=== PATIENT | female | born 1985 | race Caucasian/White ===

== ENCOUNTER 2017-09-19 05:12 | Inpatient (IN) | payer SELFPAY ==
[~2017-09-19] VITALS: Ht 152.4 cm; Wt 75.7 kg
[2017-09-19] MEDS ORDERED: FAMOTIDINE(*) 20MG/50ML PREMIX 50 ML IVPB PRN (05:14)
[2017-09-19] MEDS ORDERED: cefOXitin SOD 2 GM VIAL 2 GM in NS(*) 0.9% 100 ML BAG 100 ML IVPB PRN (05:15)
[2017-09-19] MEDS ORDERED: fentaNYL CITR 100 MCG/2 ML AMP IVP PRN (05:15)
[2017-09-19] MEDS ORDERED: MISOPROSTOL 25 MCG CAP PV PRN (05:15)
[2017-09-19] MEDS ORDERED: METOCLOPRAMIDE 10 MG/2 ML SDV IVP PRN (05:15)
[2017-09-19] MEDS ORDERED: LIDOCAINE/SOD BICARB 8.4% SYR SC PRN (05:15)
[2017-09-19] MEDS ORDERED: LIDOCAINE 1% LOCAL 300 MG/30ML INJ PRN (05:15)
[2017-09-19 06:00] VITALS: BP 144/94; Ht 152.4 cm; Wt 75.7 kg
[2017-09-19] MEDS ORDERED: DLR(*) 1000 ML BAG 1,000 ML IV PRN (06:12)
[2017-09-19] MEDS ORDERED: PENICILLIN G 5 MILLUN/100 ML 100 ML IVPB ONE (06:15)
[2017-09-19 06:27] LABS: PLATELET COUNT, AUTOMATED 241 K/uL (150-450)
[2017-09-19] MEDS: LR(*) 1000 ML BAG 1,000 ML IV PRN ×2 (07:00→18:06)
[2017-09-19] MEDS ORDERED: LIDO/EPI 2% MPF 1:200,000 20ML EPI PRN (07:15)
[2017-09-19] MEDS ORDERED: FENTANYL/ROPIVACAINE 100 ML BAG EPI PRN (07:15)
[2017-09-19] MEDS ORDERED: fentaNYL CITR 100 MCG/2 ML AMP IT PRN (07:15)
[2017-09-19] MEDS ORDERED: ePHEDrine 25 MG/5 ML DISP.SYR IVP PRN (07:15)
[2017-09-19] MEDS ORDERED: ONDANSETRON 4 MG/2 ML VIAL IVP PRN (07:15)
[2017-09-19] MEDS ORDERED: BUPIVACAINE 0.25% MPF INJ EPI PRN (07:15)
[2017-09-19] MEDS ORDERED: LIDOCAINE/PF 2% 200MG/10ML AMP 200 MG/10 ML AMPUL EPI PRN (07:15)
[2017-09-19] MEDS ORDERED: BUPIVACAINE 0.5% INJ 30ML VIAL EPI PRN (07:15)
[2017-09-19] MEDS ORDERED: PREN-127 PO (07:24)
[2017-09-19] MEDS ORDERED: ACET-1966 PO (07:24)
--- NOTE | 2017-09-19 08:40 | History & Physical ---
History of Present Illness Age of Patient: 32 : 4 Para or TPAL: 3003 EDC per LMP: September 26, 2017 Estimated Gestational Age: 39 Chief Complaint IOL History of Present Illness The patient is a 32 year old 4 para 3003 admitted at 39 weeks estimated gestational age with an estimated date of delivery 09/26/17. Patient is admitted for induction. No vaginal bleeding. Good movement and occasional contractions. She was evaluated for active labor. She had course complicated by late transfer of care, relinquishing , and a positive RPR and confirmatory test pending. Her record was reviewed. History Allergies: Coded Allergies: No Known Drug Allergies (Unverified , 09/19/17) Med Rec Home Meds Reported Medications Acetaminophen (TYLENOL) 325 Mg Tablet, 325 MG PO, TAB 09/19/17 Vits W-Ca,Fe,Fa(<1MG) ( VITAMINS) 1 Each Tablet, 1 EACH PO DAILY, TAB 09/19/17 Exam General Exam Vital Signs Vital Signs Date Time Temp Pulse Resp B/P (MAP) Pulse Ox O2 Delivery O2 Flow Rate FiO2 09/19/17 06:00 99.4 120 16 144/94 (111) 99 Room Air Cardiovascular: Regular Rate and Rhythm Respiratory: Clear to Auscultation Abdomen: Gravid - Non-Tender Extremities: No Edema Cervical Dialation: 2 Cervical Effacement (%): 50 Station: -3 Presentation: Vertex Uterine Contractions(Q min): 3 Fetus Heart Tones: 140 FHT Category: I Medical Decision Making Data Points Result Diagram: 09/19/17 0612 Assessment and Plan Problems: (1) , normal subsequent Assessment & Plan: cytotec induction initiated, will start PCN for GBS prophylaxis with unknown carrier status. Result should be back by noon. RPR with confirmatory test pending. Will monitor for change in cervix. Copies to: YANG VALDEZ MD, JOHN MD September 19, 2017 08:39
[2017-09-19] MEDS ORDERED: EPIDURAL KEYS XX PRN (12:00)
[2017-09-19] MEDS ORDERED: OXYTOCIN 30 UNIT/D5LR 500 ML 500 ML IV PRN (12:51)
--- NOTE | 2017-09-19 12:51 | Labor Progress Note ---
Labor Subjective Progress Notes Subjective sleeping, not feeling painful contractions Labor Pain: Mild Labor Objective Vital Signs Vital Signs Date Time Temp Pulse Resp B/P (MAP) Pulse Ox O2 Delivery O2 Flow Rate FiO2 09/19/17 06:00 99.4 120 16 144/94 (111) 99 Room Air Cervical Dialation: 3 Cervical Effacement (%): 50 Cervical Consistency: Soft Cervical Position: Posterior Station: -2 Presentation: Vertex Uterine Contractions(Q min): 5 Uterine Contraction Strength: Mild Fetus Heart Tones: 130 FHT Category: I Other Result Diagram: 09/19/17 0612 Assessment and Plan Problems: (1) , normal subsequent Assessment & Plan: will start pitocin to augment contraction strength YANG VALDEZ MD September 19, 2017 12:51
[2017-09-19] MEDS ORDERED: PENICILLIN G 2.5 MILLUN/100 ML 100 ML ONE (13:03)
--- NOTE | 2017-09-19 16:06 | Labor Progress Note ---
Labor Subjective Progress Notes Subjective feeling contractions Labor Pain: Mild Labor Objective Vital Signs Vital Signs Date Time Temp Pulse Resp B/P (MAP) Pulse Ox O2 Delivery O2 Flow Rate FiO2 09/19/17 06:00 99.4 120 16 144/94 (111) 99 Room Air Cervical Dialation: 3 Cervical Effacement (%): 50 Cervical Consistency: Soft Cervical Position: Posterior Station: Ballotable Presentation: Vertex Uterine Contractions(Q min): 3 Uterine Contraction Strength: Moderate Fetus Heart Tones: 130 FHT Category: I Other Result Diagram: 09/19/17 0612 Assessment and Plan Problems: (1) , normal subsequent Assessment & Plan: discussed with Dr Bhandari at OBX the positive RPR with a 1:1 titer with FTA-ABS pending. 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 Will continue ptiocin and AROM when able YANG VALDEZ MD September 19, 2017 16:06
[2017-09-19] MEDS ORDERED: LIDOCAINE/SOD BICARB 8.4% SYR ONE (16:51)
[2017-09-19] MEDS: PENICILLIN G 2.5 MILLUN/100 ML 100 ML IVPB SCH ×2 (17:00→21:00)
--- NOTE | 2017-09-19 18:08 | Labor Progress Note ---
Labor Subjective Progress Notes Subjective feeling contractions Labor Pain: Mild Labor Objective Vital Signs Vital Signs Date Time Temp Pulse Resp B/P (MAP) Pulse Ox O2 Delivery O2 Flow Rate FiO2 09/19/17 06:00 99.4 120 16 144/94 (111) 99 Room Air Cervical Dialation: 4 Cervical Effacement (%): 75 Cervical Consistency: Soft Cervical Position: Mid Station: -1 Presentation: Vertex Uterine Contractions(Q min): 3 Uterine Contraction Strength: Moderate Fetus Heart Tones: 130 Heart Tone Variabilty: Moderate FHT Category: I Other Result Diagram: 09/19/17 0612 Assessment and Plan Problems: (1) , normal subsequent Assessment & Plan: AROM clear fluid will get epidural and monitor for change YANG VALDEZ MD September 19, 2017 18:08
--- NOTE | 2017-09-19 18:58 | Anesthesia OB Pre-Anes Eval ---
History of Present Illness Anesthesia Start Date: September 19, 2017 Anesthesia Start Time: 18:15 OB Anesthesia Diagnosis: induction - elective Current Complication: obesity EDC: September 26, 2017 : 5 Para: 4 Vital Signs: Vital Signs 09/19/17 06:00 Temp 99.4 Pulse 120 Resp 16 B/P (MAP) 144/94 (111) Pulse Ox 99 O2 Delivery Room Air Pain Ratin Heart Tones: 136 Result Diagram: 09/19/17 0612 Height (Inches): 60.00 Weight (Pounds): 167 BMI Calculated: 32.61 Past Medical History Medical History: no pertinent history Previous Anesthesia: epidural Attended Childbirth Classes?: No Hx Anesthesia Reactions: No Hx Family Anesthesia Reaction: No Current Medications: pitocin Past Complications: obesity Home Meds Reported Medications Acetaminophen (TYLENOL) 325 Mg Tablet, 325 MG PO, TAB 09/19/17 Vits W-Ca,Fe,Fa(<1MG) ( VITAMINS) 1 Each Tablet, 1 EACH PO DAILY, TAB 09/19/17 Allergies: Coded Allergies: No Known Drug Allergies (Unverified , 09/19/17) Anesthesia OB ROS Neurological: No migraines/headaches, No seizures, No neuropathy, No other ENT: Denies Tooth caps, Denies Loose teeth, Denies Chipped teeth, Denies Dentures, Denies Bridges, Denies Retainers, Denies Veneers, Denies Implants, Denies Tongue ring, Denies Other Pulmonary: smoker (pks/day/yrs) Airway Class: lll Cardiovascular ROS: No edema, No arrhythmia, No other GI ROS: clear liquids Last Solids Date: September 19, 2017 Last Solids Time: 05:00 ROS: No Herpes, No STD(s), No Liver Disease, No Renal Disease, No Other Endocrine ROS: No diabetes, No gestational diabetes, No thyroid disorder, No other Musculoskeletal ROS: scoliosis ASA Classification: 2 Assessment and Plan Anesthesia Plan: OSVALDO ADAMS CRNA September 19, 2017 18:58
--- NOTE | 2017-09-19 19:10 | Procedure Note ---
Anesthetic Placement Note Anesthesia Plan: CSE Permit for Anesthesia Signed: Yes Anesthesia Technique: Patient Sitting Anesthesia Prep: Chlorhexidine Interspace: L 3-4 Local Anesthetic: 1% Lidocaine Amount Local - cc's: 3 Anesthesia Needle: 17g Touhy/Schliff Anesthesia Attempts: 2 Loss of Resistance: Normal Saline Depth of RAJESH (cm): 5 Epidural Needle Placement: No CSF, No Blood, No Parasthesia Intrathecal Needle: 27 Gauge Pencan Cerebral Spinal Fluid: Yes, Clear Catheter Insertion (cm): 10 Catheter Type: Serra - Spring Wound Epidural Dressing: Tegaderm, Tape Anesthesia Tray: Lot Number ([id number]), Expiration Date (02/26), Reference Number ([id number]) Anesthesia Medications: Intrathecal Dose: mcg Fentanyl (10), mg Spinal Bupivicaine (2), Time (1827) Epidural Test Dose: 1.5 Lido/Epi (1:200,000), Dose - mL (3), Time (0900), Negative Epidural Infusion: 0.2% Ropivicaine, With Fentanyl 2mcg/ml, Start Time: (1845) Epidural Pump Setting: Bolus Dose - mL (6), Lockout - Minutes (30), Maintenance Rate - mL/hr (6), Maximum per Hour - mL (18) Complications: None OSVALDO LAMAR CRNA September 19, 2017 19:10
[2017-09-19] MEDS ORDERED: METHYLERGONOVINE MAL 0.2MG/ML ONE (19:23)
[2017-09-19] MEDS ORDERED: CARBOPROST TROMETHAM 250MCG/ML IM ONLY ONE (19:23)
[2017-09-19] MEDS ORDERED: BENZOCAINE 20% 60 ML BTL TP PRN (20:25)
[2017-09-19] MEDS ORDERED: GLYCERIN/WITCH HAZEL LEAF 1 PK TP PRN (20:25)
[2017-09-19] MEDS ORDERED: LANOLIN OINT 7 GM TUBE TP PRN (20:25)
[2017-09-19] MEDS ORDERED: HYDROmorphone HCL 2 MG TAB PO PRN (20:25)
[2017-09-19] MEDS ORDERED: ACETAMINOPHEN 325 MG TAB PO PRN (20:25)
[2017-09-19] MEDS ORDERED: HYDROCORTISONE 2.5% CR 30GM TB PR PRN (20:25)
[2017-09-19] MEDS ORDERED: MAGNESIUM HYDROXIDE* 30ML UDCP PO PRN (20:25)
--- NOTE | 2017-09-19 20:37 | OB Delivery Note ---
Delivery Note Vaginal Delivery Type: Spont. Vaginal Delivery Delivery Date: September 19, 2017 Delivery Time: 20:11 Estimated Gestational Age(wks): 39 Delivery Anesthesia: Epidural Sex: Female Weight (gms): 2896 Apgars: 1 Minute (8), 5 Minute (9) Estimated Blood Loss: 350 Delivery Complications: Other (chest pain after delivery) Notes: ELECTIVE CYTOTEC INDUCTION, MADE SLOW PROGRESS INITIALLY, PITOCIN AUGMENTATION, AROM, CLEAR FLUID, PROGRESSED TO COMPLETE AND PUSHED EFFECTIVELY. INFANTS VERTEX DELIVERED OVER INTACT PERINEUM, NO COMPLICATIONS, PLACENTA DELIVERED. PITOCIN FOR UTERINE TONE. DEVELOPED SOME CHEST TIGHTNESS AFTER HANDING BABY TO ADOPTING MOM. Vocational Nurse in Attendence: No Copies to: YANG VALDEZ MD, JOHN MD September 19, 2017 20:36
[2017-09-19] MEDS ORDERED: NS 0.9% ONE (20:52)
[2017-09-19] MEDS ORDERED: IOPAMIDOL 76% 75 ML INFUS BTL 75 ML ONE (20:52)
[2017-09-19] MEDS: DOCUSATE CALCIUM 240 MG CAP PO SCH (21:00)
[2017-09-19] MEDS ORDERED: MORPHINE 2 MG/ML SYR ONE (21:06)
[2017-09-19] MEDS ORDERED: OXYTOCIN 10 UNIT/ML SDV ONE (22:01)
--- NOTE | 2017-09-19 22:11 | RADIOLOGY IMAGING REPORT ---
FACILITY: [facility] [place] PATIENT NAME: Riri Mcqueen : 1985 MR: [id number] V: [id number] EXAM DATE: ORDERING PHYSICIAN: YANG VALDEZ TECHNOLOGIST: Location: [facility] Patient: Riri Mcqueen : 1985 Visit/Account:[id number] Date of Sevice: 09/19/2017 CT angiogram of the chest: Indication: Post chest pain. Technique: Helical CT was performed through the chest following IV contrast enhancement with 75 cc of Isovue 370. Multiplanar reconstructions and MIP images are reviewed. One of the following dose optimization techniques was utilized in the performance of this exam: Autom ated exposure control; adjustment of the mA and/or kV according to the patient's size; or use of an i terative reconstruction technique. Specific details can be referenced in the facility's radiology C T exam operational policy. Comparison: None. Pulmonary arteries: There is uniform contrast enhancement. There are no signs of pulmonary emboli. Aorta and great vessels: There is uniform contrast enhancement. There are no signs of dissection or a neurysm. Heart and pericardial soft tissues: Within normal limits. Mediastinal soft tissues: Unremarkable. Lung gentile: Well-expanded and clear. No focal or diffuse opacities. Pleural spaces: No evidence of effusion, focal pleural thickening, or pneumothorax. Skeletal structures: Intact and unremarkable. Upper abdomen: Unremarkable. IMPRESSION: No evidence of pulmonary emboli. No focal parenchymal or pleural abnormality. Report Dictated By: Benitez Medley MD at 09/19/2017 9:58 PM Report E-Signed By: Benitez Medley MD at 09/19/2017 10:07 PM WSN:[id number]
--- NOTE | 2017-09-19 22:12 | Anesthesia Progress Note ---
Progress/Maintenance Anesthesia Note Date: September 19, 2017 Anesthesia Note Time: 21:00 Pain Intensity: 7 Pump: Off Anesthesia Treatment: To Radiology : c/o CP Assessment and Plan Anesthesia Plan: CSE Assessment: Pt c/o CP immediately p . To radiology for scan. See paper anesthesia recoed. Anesthesia Stop Day: September 19, 2017 Anesthesia Stop Time: 22:00 OSVALDO LAMAR CRNA September 19, 2017 22:12
--- NOTE | 2017-09-19 22:19 | Hospitalist Consultation ---
History of Present Illness Requesting Physician Dr. Valverde Reason for Consult Chest pain History of Present Illness This patient had a vaginal delivery earlier this evening. She started to complain of chest pain shortly afterward. She describes the pain as tight across the right side of her chest and it is worsened when she takes a deep breath. History Problems: (1) Essential hypertension Home Meds Reported Medications Acetaminophen (TYLENOL) 325 Mg Tablet, 325 MG PO, TAB 09/19/17 Vits W-Ca,Fe,Fa(<1MG) ( VITAMINS) 1 Each Tablet, 1 EACH PO DAILY, TAB 09/19/17 Allergies: Coded Allergies: No Known Drug Allergies (Unverified , 09/19/17) Hx Smoking: Yes Smoking Status: Former Smoker Exposure to Second Hand Smoke?: No Review of Systems All Systems Reviewed/Normal: Yes, Except as Noted Cardiovascular: Chest Pain Exam Vital Signs Vital Signs Date Time Temp Pulse Resp B/P (MAP) Pulse Ox O2 Delivery O2 Flow Rate FiO2 09/19/17 06:00 99.4 120 16 144/94 (111) 99 Room Air Cardiovascular: Regular Rate and Rhythm, No JVD Respiratory: Clear to Auscultation Extremities: No Edema Integumentary: No Cyanosis Medical Decision Making Data Points Result Diagram: 09/19/17 0612 Item Value Date Time Troponin I < 0.012 ng/ml 09/19/17 2040 Urine Amphetamines Screen Positive 09/19/17 0000 EKG / Imaging EKG Interpretation EKG reviewed. Imaging CT chest reviewed. Assessment and Plan Problems: (1) Chest pain Assessment & Plan: Her EKG and troponin were both negative. A CT angiogram was negative for pulmonary embolism or other acute pathology. She did test positive for amphetamines. We would recommend another EKG overnight and treating her pain symptomatically. Venous Thromboembolism Antithrombotics Is Pt On Any Antithrombotics?: No YANG MCCARTHY DO September 19, 2017 22:19
[2017-09-19] MEDS ORDERED: KETOROLAC 30 MG/ML VIAL IVP ONE (22:20)
[2017-09-19] MEDS ORDERED: clonazePAM 0.5 MG TAB PO PRN (22:20)
[2017-09-19] MEDS ORDERED: OXYTOCIN 10 UNIT/ML SDV IV ONE (23:55)
[2017-09-19] MEDS ORDERED: hydrOXYzine 25 MG TAB PO ONE (23:55)
[2017-09-19] MEDS ORDERED: DLR(*) 1000 ML BAG 1,000 ML IV ONE (23:55)
[2017-09-20] MEDS ORDERED: MORPHINE 2 MG/ML SYR IVP ONE
--- NOTE | 2017-09-20 01:51 | EKG ---
FACILITY: [facility] PATIENT NAME: LISETH ASHFORD : [id number] MR: [id number] V: [id number] EXAM DATE: ORDERING PHYSICIAN: YANG VALDEZ TECHNOLOGIST: FOSTER Test Reason : CHEST PAIN Blood Pressure : / mmHG Vent. Rate : 089 BPM Atrial Rate : 089 BPM P-R Int : 150 ms QRS Dur : 080 ms QT Int : 364 ms P-R-T Axes : 078 088 056 degrees QTc Int : 442 ms Normal sinus rhythm Normal ECG No previous ECGs available Confirmed by YANG MCCARTHY ([id number]) on 09/20/2017 6:29:36 AM Referred By: Confirmed By:YANG MCCARTHY
--- NOTE | 2017-09-20 01:51 | EKG ---
FACILITY: [facility] - [place] PATIENT NAME: LISETH ASHFORD : [id number] MR: [id number] V: [id number] EXAM DATE: ORDERING PHYSICIAN: YANG VALDEZ TECHNOLOGIST: FOSTER Test Reason : CHEST PAIN Blood Pressure : / mmHG Vent. Rate : 089 BPM Atrial Rate : 089 BPM P-R Int : 142 ms QRS Dur : 072 ms QT Int : 348 ms P-R-T Axes : 080 090 059 degrees QTc Int : 423 ms Normal sinus rhythm Normal ECG When compared with ECG of 19-SEP-2017 20:46, No significant change was found Confirmed by YANG MCCARTHY ([id number]) on 09/20/2017 6:29:41 AM Referred By: Confirmed By:YNAG MCCARTHY
[2017-09-20] MEDS ORDERED: MISOPROSTOL 25 MCG CAP PV ONE (05:15)
[2017-09-20 06:09] VITALS: BP 176/96
[2017-09-20] MEDS: IBUPROFEN 800 MG TAB PO SCH ×2 (06:26→13:43)
[2017-09-20 07:30] VITALS: BP 131/86
--- NOTE | 2017-09-20 08:15 | OB/GYN Progress Note ---
OB Subjective Progress Notes Subjective Pain controlled, Tolerating diet and activity. Baby . Normal lochia. GI: POS Flatus, NEG Nausea, NEG Vomiting : Voiding Well Pain: Mild OB Objective Physical Exam Vital Signs Date Time Temp Pulse Resp B/P (MAP) Pulse Ox O2 Delivery O2 Flow Rate FiO2 09/20/17 06:09 99.2 103 18 176/96 (122) 99 Room Air Cardiovascular: Regular Rate and Rhythm, No JVD Respiratory: Clear to Auscultation Abdomen: Fundus Firm Extremities: No Edema Result Diagram: 09/20/17 0640 Assessment and Plan Problems: (1) , normal subsequent Status: Resolved (2) care following vaginal delivery Assessment & Plan: Pain controlled, Tolerating diet and activity. Baby . Normal lochia. Reports medicine she is taking for depression will test positive for amphetamine. (3) Chest pain Assessment & Plan: CT PA no sign of PE, no pain this am Problem Qualifiers (1) Chest pain: Chest pain type: intercostal pain Qualified Codes: R07.82 - Intercostal pain YANG VALDEZ MD September 20, 2017 08:15
[2017-09-20] MEDS ORDERED: HYDR2TAB4 PO (08:20)
[2017-09-20] MEDS ORDERED: IBUP800T37 PO (08:20)
[2017-09-20] MEDS ORDERED: NIFE30TA92 PO (08:20)
--- NOTE | 2017-09-20 08:25 | OB/GYN Discharge Summary ---
Discharge Summary Reason for Hosp/Final Diag: (1) , normal subsequent Status: Resolved (2) care following vaginal delivery Hospital Course & Plan: IOL elective, vaginal delivery, had chest pain shortly after delivery with normal workup except for positive amphetamines. Social work consulted. on day 1 Pain controlled, Tolerating diet and activity. Baby . Normal lochia. (3) Chest pain Hospital Course & Plan: CT PA no sign of PE, no pain this am Lates Vital Signs Vital Signs Date Time Temp Pulse Resp B/P (MAP) Pulse Ox O2 Delivery O2 Flow Rate FiO2 09/20/17 06:09 99.2 103 18 176/96 (122) 99 Room Air Weight (Pounds): 167 Result Diagram: 09/20/17 0640 Condition: Improved Discharge: Home, Self Snf Meds Active Scripts Nifedipine (PROCARDIA XL) 30 Mg Tab.er.24, 30 MG PO QDAY, #30 CAP Prov:YANG VADLEZ MD 09/20/17 Ibuprofen (IBUPROFEN) 800 Mg Tablet, 1 TAB PO Q8H, #30 TAB 0 Refills Take with food every 8 hours. Prov:YANG VALDEZ MD 09/20/17 Hydromorphone Hcl (HYDROMORPHONE HCL) 2 Mg Tablet, 2-4 MG PO Q4H for PAIN, #20 TAB 0 Refills Prov:YANG VALDEZ MD 09/20/17 Reported Medications [unknown] No Conflict Check 09/20/17 Acetaminophen (TYLENOL) 325 Mg Tablet, 325 MG PO, TAB 09/19/17 Vits W-Ca,Fe,Fa(<1MG) ( VITAMINS) 1 Each Tablet, 1 EACH PO DAILY, TAB 09/19/17 [facility] [phone] Follow up in: 6 wks PP or PO, 3-4 days Discharge Diet: As Tolerates Discharge Activity: Pelvic Rest Copies to: YANG VALDEZ MD Problem Qualifiers (1) Chest pain: Chest pain type: intercostal pain Qualified Codes: R07.82 - Intercostal pain YANG VALDEZ MD September 20, 2017 08:25
[2017-09-20] MEDS ORDERED: MULTIVITAMINS (PRENATAL) TAB PO SCH (09:00)
[2017-09-20] MEDS: DOCUSATE CALCIUM 240 MG CAP PO SCH (09:00)
[2017-09-20] MEDS ORDERED: NIFEdipine XL 30 MG TABCR PO SCH (09:00)
[2017-09-20 09:20] VITALS: BP 142/88
[2017-09-20 09:25] VITALS: BP 126/78
--- NOTE | 2017-09-20 10:41 | Anesthesia Post Eval Note ---
Anesthesia Post Eval Note Vital Signs 09/20/17 09/20/17 09/20/17 07:30 09:20 09:25 Temp 99.3 Pulse 99 Resp 20 B/P (MAP) 126/78 (94) Pulse Ox 94 O2 Delivery Room Air Pt able to participate in Eval: Yes Cardiovascular Status: Satisfactory Respiratory Status: Satisfactory Pain Managment: Satisfactory PO Nausea/Vomiting: Satisfactory Temperature Management: Satisfactory Mental Status: Satisfactory, Alert, Oriented X3 Post-Op Hydration Status: Satisfactory, Tolerating PO Well, Voiding w/o Difficulty Anesthesia Type: CSE Anesthesia Tolerance: Denies CP this morning still has moist cough. OSVALDO LAMAR CRNA September 20, 2017 10:41
[2017-09-20 12:15] VITALS: BP 167/87
[2017-09-20 12:30] VITALS: BP 158/93
[2017-09-20] MEDS ORDERED: ALBUTEROL SULFATE 90 MCG/ACT 8.5 GM HNH INH PRN (15:35)
[2017-09-20] MEDS ORDERED: MEASLES,MUMP,RUBELLA VAC 0.5ML SUBQ ONE (20:25)
[2017-09-20] MEDS ORDERED: INFLUENZA VIRUS VAC 0.5 ML SYR IM ONLY ONE (20:25)
[2017-09-20] MEDS ORDERED: DIPHTH/TETANUS/ACEL. PERTUSSIS IM ONLY ONE (20:25)
== END 2017-09-20 16:30 | disposition home or self-care (01) | DRG 775 ==
LOC: OB 05:12
PROVIDERS: ADMIT Obstetrics & Gynecology; ATTEND Obstetrics & Gynecology
PROC: 10E0XZZ Delivery of Products of Conception, External Approach (ICD-10-PCS; principal; 2017-09-19)
PROC: 3E0P7VZ Introduction of Hormone into Female Reproductive, Via Natural or Artificial Opening (ICD-10-PCS; 2017-09-19)
PROC: 10907ZC Drainage of Amniotic Fluid, Therapeutic from Products of Conception, Via Natural or Artificial Opening (ICD-10-PCS; 2017-09-19)
DX: O99.324 Drug use complicating childbirth (principal); F15.90 Other stimulant use, unspecified, uncomplicated; O99.214 Obesity complicating childbirth; R07.82 Intercostal pain; E66.9 Obesity, unspecified; Z68.32 Body mass index [BMI] 32.0-32.9, adult; Z3A.39 39 weeks gestation of pregnancy; Z37.0 Single live birth
CPT/HCPCS: 01922; 36415; 71275; 80305; 84484; 85025; 85027; 85379; 86850; 86900; 86901; 93005; J1885; J2540; J2590; J3010; J7120; Q9967; S0020